=== PATIENT | male | born 1950 | race Caucasian/White ===

== ENCOUNTER 2024-08-22 15:26 | Inpatient (IN) | payer OTHER, SELFPAY ==
[2024-08-22 11:43] VITALS: BP 190/92
[2024-08-22 11:46] VITALS: BP 190/92
--- NOTE | 2024-08-22 12:03 | ED.MUSCINJ ---
HPI-Injury
General
Chief Complaint: Fall
Source: patient
Exam Limitations: none
Time Seen by Provider: 08/22/24 11:53
History of Present Illness-Injury
Initial Injury comments:
74-year-old male insulin-dependent type 2 diabetic presents after a trip and fall in his yard today. He complains of right hip pain. His right leg is externally rotated. He did not hit his head. He notes an abrasion to the right elbow. He is
not anticoagulated. No other complaints at this time
Past History
Past History
ED Past Medical History: HTN, Hypercholesterolemia and IDDM
ED Past Surgical History: None and Orthopedic
Social History
Tobacco: Smoker
Alcohol: Occasional
Personal:
Living: with family
Phy Exam
Physical Exam
Physical Exam:
General: Well appearing male NAD
HEENT: NC/AT
Heart: RRR, no murmurs
Lungs; CTA
ABd: soft, nontender
Ext: no cyanosis or edma
MSK: Right leg externally rotated with increased pain with internal rotation. The pain is at his hip. He is tender anteriorly about the right hip.
Vascular: 2+ dorsalis pedis pulse bilateral
Injury Course
Orders/Labs/Results
Orders:
Orders
08/22/24 11:53
Hip, Right 2-3 Views [CR Hip - RT w/wo Pel 2-3 Vw*] Urgent
Comment:
Reason For Exam: fall
Include a pelvis x-ray?: Yes
08/22/24 12:02
Acetaminophen [Tylenol] 1,000 mg PO NOW STA
08/22/24 12:48
Complete Blood Count/With Diff Urgent
Comprehensive Metabolic Panel Urgent
MDM/Problems Addressed
Differential Diagnosis Includes:
Fall with right hip pain. Fall was mechanical in nature. Clinical concern for possible fracture but will get x-rays to evaluate location or rule out fracture otherwise. No indication of imaging of his head and there is no signs of trauma he did
not hit his head.
*Critical Care Note
Total Time (30-74mins, 75-104mins- exclusive of procedures): Not Applicable
Update Note
Update Note:
Personally visualized x-rays of the right hip and pelvis which demonstrate an acute basicervical/intertrochanteric fracture of the right femur. Notified hospitalist as well as orthopedics. Will admit to hospital
ED Attending Note
-
Portions of this chart may have been created with voice recognition software.� Occasional wrong word or��sound alike� substitutions may have occurred due to the inherent limitations of voice recognition software.
Discharge Plan
Departure
Patient Disposition: Admit
Date of Disposition: 08/22/24
Time of Disposition: 12:54
Presentation/result/management discussed w/ accepting MD/DO: Hospitalist
Discharge Problem:
Closed right hip fracture
Prescriptions:
No Action
rosuvastatin [Crestor] 10 MG tablet
10 mg PO DAILY
metformin 500 mg Tablet
500 mg PO BID
insulin glargine [Lantus Solostar U-100 Insulin] 100 unit/mL (3 mL) Insulin Pen
34 unit SC HS
carvedilol 12.5 mg tablet
12.5 mg PO BID
aspirin 81 mg Tablet,Delayed Release (Dr/Ec)
81 mg PO DAILY
Ozempic 2 mg/dose (8 mg/3 mL) pen injector
2 mg SC RHODES
ondansetron 4 mg tablet,disintegrating
4 mg PO TID PRN (Reason: nausea/vomiting)
losartan 100 mg Tablet
100 mg PO DAILY Qty: 30 0RF
amlodipine 5 mg Tablet
5 mg PO DAILY Qty: 30 0RF
methimazole 5 mg Tablet
5 mg PO DAILY Qty: 30 0RF
Referrals:
Rosalva Coronado PA-C [Family Provider] -
Interventions
Interventions:
*Risk Screen - Suicide Last Done: 08/22/24 11:43
*General Assessment Last Done: 08/22/24 11:43
*Neglect/Abuse Screening Last Done: 08/22/24 11:43
ED- Fall Risk Assessment Last Done: 08/22/24 11:51
*ED COVID-19 Vaccine History Last Done: 08/22/24 11:43
ED-Musculoskeletal Assessment Last Done: 08/22/24 11:51
ED- Neurological Assessment Last Done: 08/22/24 11:51
Discharge Date and Time
Print Language: SAMMARINESE
[2024-08-22] MEDS: TYLENOL 1000 MG PO (12:13)
[2024-08-22 12:20] VITALS: BMI 35.9
[2024-08-22 13:02] LABS: % Basophils 0.6 % (0-2); % Eosinophils 1.3 % (0-6); % Immature Granulocytes 0.7 % (0-0.5); % Lymphocytes 13.8 % (20.5-51.1); % Monocytes 6.3 % (1.7-9.3); % Neutrophils 77.3 % (42.2-75.2); Absolute Basophils 0.1 10^3/uL (0-0.2); Absolute Eosinophils 0.2 10^3/uL (0-0.7); Absolute Immature Granulocytes 0.1 10^3/uL (0-0.05); Absolute Lymphocytes 1.6 10^3/uL (1.2-3.4); Absolute Monocytes 0.7 10^3/uL (0.1-0.6); Absolute Neutrophils 8.7 10^3/uL (1.4-6.5); Hematocrit 41.2 % (39.0-52.0); Hemoglobin 13.3 g/dL (13.0-18.0); Mean Corp Hgb Conc. 32.3 g/dL (33.0-37.0); Mean Corpuscular Hgb 30.1 pg (27.0-31.0); Mean Corpuscular Volume 93.2 fL (80.0-94.0); Mean Platelet Volume 10.9 fL (7.4-10.4); Nucleated Red Blood Cells % 0 % (-); Platelet Count 196 10^3/uL (130-400); Red Blood Cell Count 4.42 10^6/uL (4.70-6.10); Red Cell Dist. Width 12.8 % (11.5-14.5); White Blood Cell Count 11.2 10^3/uL (4.8-10.8)
[2024-08-22] MEDS: DILAUDID 0.5 MG IV ×3 (13:10→23:12)
[2024-08-22 13:21] LABS: ALT (SGPT) 25 U/L (0-50); AST (SGOT) 26 U/L (17-59); Albumin 4.9 g/dl (3.5-5.0); Alkaline Phosphatase 61 U/L (38-126); Blood Urea Nitrogen 33 mg/dl (9-20); Carbon Dioxide 25 mmol/L (22-30); Chloride 104 mmol/L (98-107); Estimated Creatinine Clearance 44 ml/min; Glucose 151 mg/dl (70-99); Sodium 140 mmol/L (135-145); Total Bilirubin 0.6 mg/dl (0.2-1.3); Total Protein 7.8 g/dl (6.3-8.2); eGFR 42.04
--- NOTE | 2024-08-22 14:06 | HPS.HSE ---
Addendum entered and electronically signed by Keshai Gomez DO 08/22/24 15:35:
The patient is seen and examined. I have reviewed the patient with DOUGHNUT ICER, Hannah, and I agree with her history and physical, assessment and plan of care as per below. The patient has right hip pain, that is greatly improved following IV Dilaudid in
the ED.
Vitals reviewed as per below
PE:
NAD
CV: RRR, no m/r/g
Lungs: CTA b/l no w/r/r
Abd: Soft, nt/nd, normal bs
neurovascular-intact distal pulses, no focal neurologic deficits
Right intertrochanteric fracture-I agree with assessment and plan of care as per below, with following additions to order:
#Intertrochanteric fx following mechanical fall
-add neurovascular checks
-continue pain meds prn
-PCDs
-hold aspirin for now
#Acute renal failure on chronic kidney disease, likely partly pre-renal
-will give IVF and repeat BMP in am, baseline creatinine likely 1.3
-hold metformin
-hold losartan for now
Original Note:
Family Physician
-
Family Physician: Rosalva Coronado PA-C
Chief Complaint
-
fall
History of Present Illness
Patient is a 74-year-old male with past medical history significant for hypertension, DM II, hypercholesterolemia, CKD stage III, and hyperthyroidism who presented to [facility] for evaluation right hip pain s/p fall. Patient reports that he
tripped over [employer] [address] to [facility]. He currently reports no pain after medication in ED. He denies hitting his head and any LOC. He denies any recent sick contact, fevers, chills, cough, shortness of breath, chest pain, nausea, vomiting,
constipation, diarrhea or urinary symptoms.
Medical History
Past Medical History
Past Medical History: Reports Other
Additional Past Medical History:
benign hypertension
DM II
hypercholesterolemia
CKD stage III
hyperthyroidism
Past Surgical History: Reports Other
Additional Past Surgical History:
back surgery
bladder surgery to remove mass
Left ankle repair
Social History
Tobacco: Former Smoker (quit 2-3 years ago, 30-40 pack year history )
Alcohol: Occasional (couple beers a couple times a week)
Drug: None
Personal:
Living: With Family
Employment: Retired
Family History
Family History: Not pertinent
Allergies / Home Medications
Allergies reflects when Allergies were last updated in [facility].
Home Medications with original date entered in [facility]
Allergy/Medication List:
Allergies
Allergy/AdvReac Type Severity Reaction Status Date / Time
atorvastatin Allergy Unknown Verified 06/03/22 15:52
Home Medications
rosuvastatin 10 mg tablet (Crestor) 10 mg PO DAILY 09/08/13
insulin glargine 100 unit/mL (3 mL) subcutaneous pen (Lantus Solostar U-100 Insulin) 25 unit SC HS 05/31/22
metformin 500 mg tablet 500 mg PO BIDWMEAL 05/31/22
aspirin 81 mg tablet,delayed release 81 mg PO DAILY 06/03/22
carvedilol 12.5 mg tablet 12.5 mg PO BID 06/03/22
amlodipine 5 mg tablet 5 mg PO DAILY #30 tabs 06/06/22
methimazole 5 mg tablet 5 mg PO DAILY #30 tabs 06/06/22
empagliflozin 10 mg tablet (Jardiance) 10 mg PO DAILY 08/22/24
losartan 50 mg tablet 50 mg PO DAILY 08/22/24
repaglinide 1 mg tablet 1 mg PO AC 08/22/24
Review of Systems
-
History Source: Patient
Constitutional: Reports No Symptoms
EENT: Reports No Symptoms
Respiratory: Reports No Symptoms
Cardiac: Reports No Symptoms
Abdomen/GI: Reports No Symptoms
: Reports No Symptoms
Musculoskeletal: Reports Joint Pain (right hip)
Skin: Reports No Symptoms
Neurological: Reports No Symptoms
Endocrine: Reports No Symptoms
Hematologic/Lymphatic: Reports No Symptoms
Psych: Reports No Symptoms
Physical Exam
Vital Signs
Vital Signs
Temp Pulse Resp BP Pulse Ox
98.0 F 56 12 190/92 98
08/22/24 11:43 08/22/24 12:15 08/22/24 12:15 08/22/24 11:46 08/22/24 12:15
Physical Exam
General: Well Developed, Well Nourished, No Apparent Distress, Comfortable, Conversant and Obese
HEENT: NormoCephalic, Moist mucous membranes, Atraumatic, PERRLA, [place] Conjunctivae, Nose Appears Normal and Ears Appear Normal
Respiratory: Clear and Non Labored Respirations
Cardiac: S1/S2 and Regular Rhythm; No Murmur, Rub or Gallop
Breast: Deferred by me
GI: Soft, Non Tender, Non Distended and Normal Bowel Sounds; No Organomegaly
Rectal: Deferred by Provider
Genito-urinary: Deferred by me
Musculoskeletal: No Clubbing, No Cyanosis, No Edema and Other (limited ROM to right hip, externally rotated )
Skin: IV/Catheter Site; No Rash
Neuro: Awake, Alert, AO x 3 and Nonfocal/grossly intact
Psych: Calm and Intact Judgment/Insight
Laboratory Results
-
08/22/24 12:53
08/22/24 12:53
Laboratory Results
Total Bilirubin 0.6 mg/dl (0.2-1.3) 08/22/24 12:53
AST 26 U/L (17-59) 08/22/24 12:53
ALT 25 U/L (0-50) 08/22/24 12:53
Alkaline Phosphatase 61 U/L (38-126) 08/22/24 12:53
Data Reviewed
-
Diagnostic Radiology: Report Reviewed by me (Right Hip: Comminuted intertrochanteric fracture, proximal right femur.; Right femur: Intertrochanteric fracture, proximal right femur.)
Lab Data: Labs Reviewed by me (BUN 33, Creat 1.7)
Impression/Plan
-
IMPRESSION/PLAN:
#mechanical fall
Rt Hip x-ray: Comminuted intertrochanteric fracture, proximal right femur.
Rt Femur x-ray: Intertrochanteric fracture, proximal right femur.
- Admit to med/surg
- consult ortho
- NPO after midnight
- PT/OT
#benign hypertension
- continue amlodipine, carvedilol, and losartan
#DM II
- AccuCheck AC & HS
- SSI
- continue empagliflozin, Lantus and repaglinide
- hold metformin
#hypercholesterolemia
- continue rosuvastatin
#CKD stage III
BUN 33, Creat 1.7
- monitor BMP
#hyperthyroidism
- continue methimazole
Code status: Full Code
DVT prophylaxis: DVT Prophylaxis
[2024-08-22 16:50] VITALS: BP 133/72
--- NOTE | 2024-08-22 16:50 | PTCARENOTE ---
At 16:50 patient arrived from ED on stretcher, pulled onto bed with assist x3, static air overlay in place, VSS, admission history obtained at bedside.
[2024-08-22 18:34] LABS: Glucose - Point of Care 120 mg/dl (70-99)
[2024-08-22] MEDS: NOVOLOG FLEXPEN-LOW RESISTANCE SC (18:35)
[2024-08-22] MEDS: PRANDIN 1 MG PO (18:35)
[2024-08-22] MEDS: COREG 12.5 MG PO (19:51)
[2024-08-22] MEDS: NSS 1000 IV (19:51)
--- NOTE | 2024-08-22 20:08 | CON.ORTHO ---
Consultation - Orthopedics
History
HPI: 74-year-old community ambulator presented to emergency department status post mechanical slip and fall complaints of right hip pain and inability to bear weight. He was subsequently diagnosed with a right intertrochanteric femur fracture. He
was admitted to the hospitalist service. Orthopedics is consulted for further evaluation and treatment. This evening patient's accompanied by his at bedside. He reports that he was working in the yard when he slipped and fell and heard a
crack in his right hip. He localizes pain to the right hip and groin region. Pain is made worse with direct palpation affected area with attempted ambulation. Reports that he is quite active works out regularly. Reports that he does take baby
aspirin but no other anticoagulants. Does note history of type 2 diabetes.
Allergies / Home Medications
Past medical history: Hypertension, type 2 diabetes, hypercholesterolemia, chronic kidney disease
Past surgical history: Back surgery, bladder surgery, left ankle surgery
Family history: Not pertinent
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
Allergy/AdvReac Type Severity Reaction Status Date / Time
atorvastatin Allergy Unknown Verified 06/03/22 15:52
�Medication �Instructions �Recorded
rosuvastatin 10 mg tablet (Crestor) 10 mg PO DAILY 09/08/13
insulin glargine 100 unit/mL (3 25 unit SC HS 05/31/22
mL) subcutaneous pen (Lantus
Solostar U-100 Insulin)
metformin 500 mg tablet 500 mg PO BIDWMEAL 05/31/22
aspirin 81 mg tablet,delayed 81 mg PO DAILY 06/03/22
release
carvedilol 12.5 mg tablet 12.5 mg PO BID 06/03/22
amlodipine 5 mg tablet 5 mg PO DAILY #30 tabs 06/06/22
methimazole 5 mg tablet 5 mg PO DAILY #30 tabs 06/06/22
empagliflozin 10 mg tablet 10 mg PO DAILY 08/22/24
(Jardiance)
losartan 50 mg tablet 50 mg PO DAILY 08/22/24
repaglinide 1 mg tablet 1 mg PO AC 08/22/24
Vital Signs / Lab Results
Temp Pulse Resp BP Pulse Ox
97.9 F 68 20 131/79 98
08/22/24 16:50 08/22/24 19:51 08/22/24 16:50 08/22/24 19:51 08/22/24 16:50
08/22/24 12:53
08/22/24 12:53
10 point review systems reviewed and negative unless otherwise stated
General: Pleasant, no acute distress at rest in bed
Musculoskeletal right lower extremity
Skin intact, no erythema
Tenderness palpation of the groin and lateral trochanteric flare
Painful logroll
No tenderness palpation about knee, no palpable ipsilateral knee effusion
Positive EHL, FHL, ankle dorsiflexion, plantarflexion
Right lower extremity shortened externally rotated
No other areas of bony tenderness to palpation or crepitus of long bones or joints on tertiary exam
Diagnostic studies
X-rays right hip independently by myself and radiology report reviewed. Evidence of right intertrochanteric femur fracture.
Assessment / Plan
74-year-old community ambulator status post fall with right intertrochanteric femur fracture. I had a long detailed discussion with the patient and his regarding diagnosis and treatment options. Discussed postsurgical nonsurgical options.
After discussion we mutually elected proceed with operative intervention in the form of insertion right cephalomedullary nail for intertrochanteric femur fracture. We discussed risks benefits and alternatives to surgery. We discussed the usual
expected perioperative postoperative course. After discussion verbal consent was obtained. Will plan obtain written informed consent prior to surgery.
Nonweightbearing right lower extremity
N.p.o. at midnight
Please hold anticoagulation in preparation for OR tomorrow
Medical management per primary team
Pain control
Plan: 2 OR tomorrow for insertion right cephalomedullary nail right intertrochanteric femur fracture pending OR availability and medical clearance
[2024-08-22] MEDS: ANCEF 10 IV (21:32)
[2024-08-22] MEDS: LANTUS 0.12 UNITS SC (21:32)
[2024-08-22 21:40] LABS: Glucose - Point of Care 282 mg/dl (70-99)
[2024-08-22 22:32] VITALS: BP 169/87
[2024-08-23] VITALS (9 sets, daily range): BP systolic 114–167; BP diastolic 73–99
[2024-08-23] MEDS: DILAUDID 0.5 MG IV ×5 (04:03→20:28)
[2024-08-23 06:47] LABS: Hematocrit 37.5 % (39.0-52.0); Hemoglobin 12.3 g/dL (13.0-18.0); Mean Corp Hgb Conc. 32.8 g/dL (33.0-37.0); Mean Corpuscular Hgb 30.4 pg (27.0-31.0); Mean Corpuscular Volume 92.6 fL (80.0-94.0); Mean Platelet Volume 10.9 fL (7.4-10.4); Platelet Count 189 10^3/uL (130-400); Red Blood Cell Count 4.05 10^6/uL (4.70-6.10); White Blood Cell Count 11.2 10^3/uL (4.8-10.8)
[2024-08-23 07:07] LABS: Blood Urea Nitrogen 33 mg/dl (9-20); Calcium 8.6 mg/dl (8.4-10.2); Carbon Dioxide 23 mmol/L (22-30); Chloride 105 mmol/L (98-107); Estimated Creatinine Clearance 44 ml/min; Glucose 228 mg/dl (70-99); Potassium 4.4 mmol/L (3.5-5.1); Sodium 139 mmol/L (135-145); eGFR 42.04
[2024-08-23] MEDS: NSS 1000 IV ×2 (07:27→21:30)
--- NOTE | 2024-08-23 08:23 | W.PN.UPDATE ---
Update Note
Progress Note Update
I saw and evaluated the patient. I reviewed the resident�s note and agree with findings and plan as documented in the resident�s note.
Gen: NAD, AAOx3.
Eyes: EOMI, PERRLA, no scleral icterus.
Neck: supple.
CV: RRR, +S1/S2, no m/r/g.
Resp: CTAB, no rales, wheezes, or rhonchi.
Abd: +BS, soft, NT, ND
Skin: No rashes.
Neuro: CN 2-12 intact, non-focal.
Psych: Normal mood and affect.
R femur Xray: Intertrochanteric fracture, proximal right femur.
Right intertrochanteric fracture:
-due to mechanical fall
-OR today for insertion right cephalomedullary nail right intertrochanteric femur fracture
-low-mod risk for surgery. I recommend proceeding with planned surgical procedure as the benefit greatly outweighs the risk.
Other problems:
Essential hypertension:
DM2:
HLD:
Hyperthyroidism:
CKD3b: Cr currently acceptable for surgery. Prior Cr of 1.3 noted but this was in May 2022.
Obesity due to excess calories
FULL/SCDs
--- NOTE | 2024-08-23 08:40 | W.PN.HOSP.TC ---
Today's Communication/Plan
-
.
Assessment / Plan
Assessment / Plan
1. Right Femur Intertrochanteric Fracture s/p Mechanical Fall
- R Hip XR: Comminuted intertrochanteric fracture, proximal right femur
- R Femur XR: Intertrochanteric fracture, proximal right femur
- Seen by ortho, plan for OR today for R cephalomedullary nail
- NPO until after procedure
- PT/OT after procedure
2. Essential HTN
- Continue amlodipine, carvedilol
- Losartan held pre-procedurally
3. NIDDM
- AccuCheck AC & HS
- Sliding Scale Insulin
- continue empagliflozin, Lantus and repaglinide
- hold metformin
4. hypercholesterolemia
- continue rosuvastatin
5. CKD stage III
- Creatinine 1.7 on admission, repeat this AM 1.7 despite IV fluids
- [employer], has had 2 outpatient CMPs in the past year with Cr 1.7 (this is likely his new baseline)
- Patient has spoken with PCP regarding need to follow up with patient scheduler for worsening kidney function
6. Hyperthyroidism
- Continue methimazole
Anticipated Discharge: 24 - 48 hours
Subjective/Interval History
-
Date of Service: August 23, 2024
Patient seen and examined while resting in bed, awaiting orthopedic surgery. Patient has no other acute complaints this AM. Went over history of the injury, briefly, states that he tripped over his own feet, fell, and knew immediately that he has
fractured something. Patient denies any chest pain, palpitations, shortness of breath or dizziness prior to the event, or loss of consciousness before or after the event.
Patient notes that he has been seen by primary care physician over the past year, and that they have discussed worsening kidney function, as well as the need to visit a patient scheduler.
Objective Data
-
Labs:
Laboratory Results
08/23/24
05:05
WBC 11.2 H
Hgb 12.3 L
Hct 37.5 L
Plt Count 189
Sodium 139
Potassium 4.4
Chloride 105
Carbon Dioxide 23
BUN 33 H
Creatinine 1.7 H
Glucose 228 H
Calcium 8.6
Vital Signs:
Vital Signs
Temp Pulse Resp BP Pulse Ox
98.7 F 63 20 167/83 97
08/23/24 07:49 08/23/24 07:49 08/23/24 07:49 08/23/24 07:49 08/23/24 07:49
I&O
08/22/24 08/23/24 08/24/24
06:59 06:59 06:59
Intake Total 960 / 960
Output Total 600 / 600
Balance 360 / 360
Review of Systems
-
History Source: Patient
Constitutional: Reports No Symptoms
Respiratory: Reports No Symptoms
Cardiac: Reports No Symptoms
Abdomen/GI: Reports No Symptoms
Musculoskeletal: Reports Joint Pain (right hip)
Neuro: Reports No Symptoms
Physical Exam
-
General: No Apparent Distress, Conversant and Morbidly Obese
HEENT: Normocephalic, Atraumatic and Moist Mucous Membranes
Respiratory: Clear to Auscultation and Non Labored Respirations; Negative Wheezes, Rales or Rhonchi
Cardiac: Regular Rhythm and S1/S2
GI: Soft and Nontender
Musculoskeletal: No Clubbing, No Cyanosis, No Edema and Other (right hip, externally rotated)
Skin: Warm and Dry
Neuro: Awake and Alert
Psych: Calm
Data Reviewed
-
Diagnostic Radiology: Report Reviewed by me
Labs: Labs Reviewed by me and Discussed with Patient
[2024-08-23] MEDS: NORVASC 5 MG PO (08:51)
[2024-08-23] MEDS: TAPAZOLE 5 MG PO (08:51)
[2024-08-23] MEDS: PRANDIN PO ×3 (08:52→15:39)
[2024-08-23] MEDS: CRESTOR 10 MG PO (08:52)
[2024-08-23] MEDS: COREG 12.5 MG PO ×2 (08:52→21:31)
[2024-08-23] MEDS: FARXIGA 10 MG PO (08:52)
[2024-08-23 09:03] LABS: Glucose - Point of Care 195 mg/dl (70-99)
[2024-08-23 09:27] LABS: Glycohemoglobin (HgbA1c) 8.2 % (4.0-5.6)
[2024-08-23] MEDS: NOVOLOG FLEXPEN-LOW RESISTANCE 1 UNITS SC (09:51)
[2024-08-23 11:38] LABS: Glucose - Point of Care 141 mg/dl (70-99)
[2024-08-23] MEDS: NOVOLOG FLEXPEN-LOW RESISTANCE SC ×2 (11:45→17:48)
[2024-08-23] MEDS: DESENEX/MITRAZOL/ZEASORB 1 APPLIC TOPICAL ×2 (12:55→21:31)
--- NOTE | 2024-08-23 15:54 | CM ---
train operations manager reviewed patient's chart and patient lives with his spouse in a bilevel home with 6 steps up to kitchen and 6 steps to bedroom, patient was independent with adl's and ambulation, no dme, plan now is for skilled placement and options
reviewed with patient and spouse and they have selected [facility], referral sent to admissions at [facility].
PCP; Rosalva Coronado
Pharmacy; [facility] in [place].
[2024-08-23 16:14] LABS: Glucose - Point of Care 121 mg/dl (70-99)
--- NOTE | 2024-08-23 17:58 | OR.RPT ---
Operative Report
Operative Report
Anesthesia Type:
General
Operative Indications:
Right
Intertrochanteric femur fracture
Operative Findings :
Predominantly right basicervical femoral fracture pattern with some comminution medial calcar
Complications:
None
Implants:
11 mm x 125 degree short gamma nail, [place], 110 mm cephalomedullary screw, 35 mm x 5 mm distal interlocking screw
Procedure and Technique:
Insertion right short cephalomedullary nail
INDICATIONS FOR PROCEDURE:
74-year-old patient presented status post mechanical fall. They were subsequently diagnosed with a peritrochanteric femur fracture. Orthopedics was consulted for further evaluation and treatment. After discussion with the patient and family,
the decision was made to proceed with operative intervention in the form of short cephalomedullary nail. A long discussion was had regarding risks and benefits of procedure. Risks include but are not limited to infection, blood loss, damage to
surrounding structures, persistent pain, loss of function, need for repeat surgery, implant cut out, periprosthetic fracture, DVT/PE and adverse risks of anesthesia. Benefits include early mobilization and fracture stabilization. After discussion
written informed consent was obtained.
OPERATIVE PROCEDURE:
The patient was seen and identified in the preoperative holding area. The operative extremity was marked and all questions were addressed with the patient. Patient was taken to the operating room and provided anesthesia by the anesthesia team.
They were placed supine on a radiolucent fracture table. The nonoperative extremity was placed in a scissored position and well padded to the contralalteral post of the fracture table. Operative extremity was placed in a well-padded fracture boot.
Biplanar fluoroscopy confirmed appropriate reduction after axial traction, adduction and slight internal rotation of the operative extremity. Operative extremity was then prepped and draped in normal sterile fashion. Timeout was performed again
identifying the operative extremity correctly. Preoperative antibiotics were addressed.
A small incision was made several fingerbreadths proximal to the greater trochanter. Sharp dissection was carried through skin and subcutaneous tissues and deep fascial layers. Guidepin was then inserted under biplanar fluoroscopic guidance
through the tip of the greater trochanter in accordance with the implant's operative technique. This was inserted to a depth just distal to the lesser trochanter. Proximal opening reamer was then utilized. A short cephalomedullary nail was then
inserted to the appropriate depth. Trocar was then inserted through the aiming arm. Sharp dissection was then carried through skin and subcutaneous tissues as well as deep fascial layers for an additional stab incision for the cephalomedullary
screw. Guidewire was inserted through the trocar into the femoral neck and head. Appropriate position was confirmed under biplanar fluoroscopy. Attention was made to minimize the tip apex distance. Measurements were obtained for the
cephalomedullary screw. Cannulated drill was then utilized to the appropriate depth followed by the insertion of cannulated cephalomedullary screw. Appropriate final position of the screw within the confines of the femoral neck and head was
confirmed again on biplanar fluoroscopy. There was noted to be some comminution medial calcar/femoral neck junction inferiorly. additional trocar was then inserted through the aiming arm for the distal interlocking screw. Sharp dissection was
carried through skin, subcutaneous tissues and deep fascial layers. Appropriate length interlocking screw was then drilled and inserted. Final appropriate positioning was confirmed again on biplanar fluoroscopy. Satisfied with the extent of
surgery, wounds were copiously irrigated with normal saline solution and closed in a layered fashion utilizing 0 Vicryl for deep fascial layer, 2-0 Vicryl for subcu cutaneous layer and stacey for skin. Sterile dressings were applied. Anesthesia
was reversed and patient was taken to the operating room in a stable condition.
Disposition:
PACU stable condition
[2024-08-23 19:59] LABS: Glucose - Point of Care 105 mg/dl (70-99)
[2024-08-23] MEDS: DILAUDID 0.25 MG IV (20:06)
[2024-08-23] MEDS: COLACE 100 MG PO (21:31)
[2024-08-23 21:41] LABS: Glucose - Point of Care 134 mg/dl (70-99)
--- NOTE | 2024-08-23 21:46 | PTCARENOTE ---
Pt arrive to [facility] at 2110 from the PACU in a bed. Pt arrive with 2 Aquacells on Right hip; both C/D/I. Pt on 2L of o2. Full head to toe assessed. Pt oriented to room and call hansen. Care ongoing.
[2024-08-23] MEDS: LANTUS 0.12 UNITS SC (21:54)
[2024-08-24] VITALS (7 sets, daily range): BP systolic 144–191; BP diastolic 75–87; PULSE 89; O2SAT 96
[2024-08-24] MEDS: ANCEF 5 IV ×2 (00:32→08:29)
--- NOTE | 2024-08-24 01:29 | W.PN.UPDATE ---
Update Note
Progress Note Update
RN notified SEWING MACHINE ADJUSTER, patient with urge to void, unable to void more than 50cc post surgery. PVR 1400, will order to straight cath per protocol, Collect UA. Afebrile. Stable VS.
[2024-08-24] MEDS: ROXICODONE 10 MG PO ×3 (02:03→12:34)
[2024-08-24 03:43] LABS: Urine Albumin 3+ (Neg - Trace); Urine Bilirubin Negative (Negative); Urine Character Clear (Clear); Urine Color Yellow; Urine Glucose 4+ (Negative); Urine Ketone 1+ (Negative); Urine Leukocyte Negative (Negative); Urine Nitrite Negative (Negative); Urine Occult Blood 1+ (Negative); Urine Urobilinogen Negative (Neg - 1+)
[2024-08-24 05:49] LABS: Hematocrit 36.3 % (39.0-52.0); Hemoglobin 11.7 g/dL (13.0-18.0); Mean Corp Hgb Conc. 32.2 g/dL (33.0-37.0); Mean Corpuscular Hgb 30.3 pg (27.0-31.0); Mean Platelet Volume 10.7 fL (7.4-10.4); Platelet Count 181 10^3/uL (130-400); Red Blood Cell Count 3.86 10^6/uL (4.70-6.10); Red Cell Dist. Width 13.1 % (11.5-14.5); White Blood Cell Count 14.6 10^3/uL (4.8-10.8)
[2024-08-24 06:15] LABS: Blood Urea Nitrogen 30 mg/dl (9-20); Calcium 8.3 mg/dl (8.4-10.2); Carbon Dioxide 19 mmol/L (22-30); Chloride 106 mmol/L (98-107); Estimated Creatinine Clearance 47 ml/min; Glucose 133 mg/dl (70-99); Potassium 4.9 mmol/L (3.5-5.1); Sodium 139 mmol/L (135-145); eGFR 45.21
[2024-08-24 06:29] LABS: Urine Bacteria Few (Negative); Urine Red Blood Cell 0-2 /HPF (0-2); Urine White Cell 0-2 /HPF (0-5)
[2024-08-24 07:26] LABS: Glucose - Point of Care 158 mg/dl (70-99)
[2024-08-24] MEDS: NSS 1000 IV ×2 (08:27→18:24)
[2024-08-24] MEDS: CRESTOR 10 MG PO (08:28)
[2024-08-24] MEDS: COLACE 100 MG PO ×2 (08:28→21:00)
[2024-08-24] MEDS: TAPAZOLE 5 MG PO (08:28)
[2024-08-24] MEDS: FARXIGA 10 MG PO (08:28)
[2024-08-24] MEDS: NORVASC 5 MG PO (08:28)
[2024-08-24] MEDS: COREG 12.5 MG PO ×2 (08:29→21:00)
[2024-08-24] MEDS: LOVENOX 40 MG SC (08:29)
[2024-08-24] MEDS: PRANDIN 1 MG PO ×3 (08:31→17:35)
[2024-08-24] MEDS: NOVOLOG FLEXPEN-LOW RESISTANCE 1 UNITS SC ×2 (08:32→12:35)
[2024-08-24] MEDS: DESENEX/MITRAZOL/ZEASORB 1 APPLIC TOPICAL ×2 (08:32→21:00)
--- NOTE | 2024-08-24 09:10 | W.PN.UPDATE ---
Update Note
Progress Note Update
I saw and evaluated the patient. I reviewed the resident�s note and agree with findings and plan as documented in the resident�s note.
Gen: NAD, AAOx3.
Eyes: EOMI, PERRLA, no scleral icterus.
Neck: supple.
CV: remains RRR, +S1/S2, no m/r/g.
Resp: remains CTAB, no rales, wheezes, or rhonchi.
Abd: remains +BS, soft, NT, ND
Skin: No rashes.
Neuro: CN 2-12 intact, non-focal.
Psych: Normal mood and affect.
R femur Xray: Intertrochanteric fracture, proximal right femur.
Right intertrochanteric fracture:
-due to mechanical fall
-s/p Insertion right short cephalomedullary nail on 08/23/24
-PT/OT
Other problems:
Essential hypertension: cont Norvasc/BB
DM2: cont Lantus/SSI/accuchecks/Prandin/Farxiga
HLD: cont statin
Hyperthyroidism: cont Methimazole
CKD3b: Cr currently acceptable for surgery. Prior Cr of 1.3 noted but this was in May 2022. No HUYEN at this time.
Obesity due to excess calories
FULL/Lovenox
Medically cleared for d/c, case management aware.
--- NOTE | 2024-08-24 11:10 | CM ---
Addendum entered by Nata Lambert 08/24/24 16:58:
Spoke with Janis from [facility] - can accept tomorrow
Called to initiate auth
Spoke with [facility]
Clinicals to be faxed to [phone]
Plan - transfer to [facility] when auth obtained
R - [phone]
- [phone]
Original Note:
Met with pt and his at bedside
PT/OT evals pending
Referral sent to [facility] - per [facility] - reviewing - will need PT/OT evals - will update referral when evals completed
Family updated
Will need auth
Plan - awaiting review by [facility] regarding acceptance; will need auth once bed obtained
[2024-08-24 12:15] LABS: Glucose - Point of Care 197 mg/dl (70-99)
--- NOTE | 2024-08-24 12:19 | W.PN.HOSP.TC ---
Today's Communication/Plan
-
Disposition planning s/p PT/OT
Assessment / Plan
Assessment / Plan
1. Right Femur Intertrochanteric Fracture s/p Mechanical Fall
- R Hip XR: Comminuted intertrochanteric fracture, proximal right femur
- R Femur XR: Intertrochanteric fracture, proximal right femur
- POD# for cephalomedullary nail of the right hip/femur
- PT/OT for disposition planning, other varela medically stable for discharge.
2. Essential HTN
- Continue amlodipine, carvedilol, losartan
3. NIDDM
- AccuCheck AC & HS
- Sliding Scale Insulin
- continue empagliflozin, Lantus and repaglinide
- hold metformin
4. hypercholesterolemia
- continue rosuvastatin
5. CKD stage III
- Creatinine 1.7 on admission, repeat this AM 1.7 despite IV fluids
- Queried [employer], has had 2 outpatient CMPs in the past year with Cr 1.6 (this is likely his new baseline)
- Patient has spoken with PCP regarding need to follow up with ladder operator for worsening kidney function
6. Hyperthyroidism
- Continue methimazole
Anticipated Discharge: Today
Subjective/Interval History
-
Date of Service: August 24, 2024
Patient seen and examined while resting in bed, his is at bedside. Patient has no acute complaints, notes some residual pain of the RLE.
Objective Data
-
Labs:
Laboratory Results
08/24/24
05:08
WBC 14.6 H
Hgb 11.7 L
Hct 36.3 L
Plt Count 181
Sodium 139
Potassium 4.9
Chloride 106
Carbon Dioxide 19 L
BUN 30 H
Creatinine 1.6 H
Glucose 133 H
Calcium 8.3 L
Vital Signs:
Vital Signs
Temp Pulse Resp BP Pulse Ox
98.1 F 77 16 153/75 97
08/24/24 07:20 08/24/24 07:20 08/24/24 07:20 08/24/24 08:29 08/24/24 08:22
I&O
08/23/24 08/24/24 08/25/24
06:59 06:59 06:59
Intake Total 960 / 960 2380 / 2380
Output Total 600 / 600 2070 / 2070 750 / 750
Balance 360 / 360 310 / 310 -750 / -750
Review of Systems
-
Constitutional: Reports No Symptoms
Respiratory: Reports No Symptoms
Cardiac: Reports No Symptoms
Musculoskeletal: Reports Other (lower extremity pain, RLE)
Neuro: Reports No Symptoms
Physical Exam
-
General: Well Developed, Well Nourished, No Apparent Distress and Comfortable
HEENT: Normocephalic and Atraumatic
Respiratory: Clear to Auscultation; Negative Wheezes, Rales or Rhonchi
Cardiac: Regular Rhythm and S1/S2
GI: Soft and Nontender
Musculoskeletal: No Clubbing, No Cyanosis and No Edema
Skin: Warm and Dry
Neuro: Awake, Alert and Oriented
Psych: Calm
Data Reviewed
-
Labs: Labs Reviewed by me
[2024-08-24 17:04] LABS: Glucose - Point of Care 244 mg/dl (70-99)
[2024-08-24] MEDS: NOVOLOG FLEXPEN-LOW RESISTANCE 2 UNITS SC (17:33)
--- NOTE | 2024-08-24 17:50 | W.PN.ORTHO ---
Today's Communication / Plan
-
74-year-old male postop day 1 status post right short cephalomedullary nail for basicervical femoral neck fracture doing well
Weightbearing as tolerated right lower extremity
PT OT
Pain control
DVT prophylaxis: Recommend Lovenox renally dosed x 28 days daily
Medical management per primary team
Plan to follow-up with myself in outpatient basis in 2 to 3 weeks for repeat evaluation plan removal of stacey
Subjective
.
.:
Patient comfortable in chair at bedside. Family with him at bedside.
Vital Signs and Labs
.
Vital Signs and Labs:
Lab Results
08/24/24 05:08
08/24/24 05:08
Temp Pulse Resp BP Pulse Ox
98.4 F 88 17 167/79 98
08/24/24 15:30 08/24/24 15:30 08/24/24 15:30 08/24/24 15:30 08/24/24 15:30
Physical Exam
-
Musculoskeletal right lower extremity
Minimal bloody drainage on dressing
Moderate swelling thigh
Positive EHL, FHL, ankle dorsiflexion, plantarflexion
[2024-08-24 19:09] LABS: Hepatitis C Antibody Negative (Negative)
[2024-08-24 21:20] LABS: Glucose - Point of Care 257 mg/dl (70-99)
[2024-08-24] MEDS: LANTUS 0.12 UNITS SC (21:21)
[2024-08-25] MEDS: NSS 1000 IV (04:43)
[2024-08-25] MEDS: ROXICODONE 10 MG PO (06:37)
[2024-08-25 07:23] LABS: Glucose - Point of Care 152 mg/dl (70-99)
[2024-08-25 07:27] VITALS: BP 145/73
--- NOTE | 2024-08-25 08:42 | W.PN.HOSP.TC ---
Today's Communication/Plan
-
.
Assessment / Plan
Assessment / Plan
1. Right Femur Intertrochanteric Fracture s/p Mechanical Fall
- R Hip XR: Comminuted intertrochanteric fracture, proximal right femur
- R Femur XR: Intertrochanteric fracture, proximal right femur
- POD# for cephalomedullary nail of the right hip/femur
- PT/OT for disposition planning, other varela medically stable for discharge.
- Medically stable for d/c since 08/24. Awaiting bed at [facility].
2. Essential HTN
- Continue amlodipine, carvedilol, losartan
3. NIDDM
- AccuCheck AC & HS
- Sliding Scale Insulin
- continue empagliflozin, Lantus and repaglinide
- hold metformin
4. hypercholesterolemia
- continue rosuvastatin
5. CKD stage III
- Creatinine 1.7 on admission, repeat this AM 1.7 despite IV fluids
- Queried [employer], has had 2 outpatient CMPs in the past year with Cr 1.6 (this is likely his new baseline)
- Patient has spoken with PCP regarding need to follow up with appeals officer for worsening kidney function
6. Hyperthyroidism
- Continue methimazole
Anticipated Discharge: Today
Subjective/Interval History
-
Date of Service: August 25, 2024
No acute complaints this AM, pain controlled.
Objective Data
-
Vital Signs:
Vital Signs
Temp Pulse Resp BP Pulse Ox
99.3 F 70 16 145/73 94
08/25/24 07:27 08/25/24 07:27 08/25/24 07:27 08/25/24 07:27 08/25/24 07:27
I&O
08/24/24 08/25/24 08/26/24
06:59 06:59 06:59
Intake Total 2380 / 2380 2880 / 2880
Output Total 2069 1450 / 1450
Balance 310 / 310 1430 / 1430
Review of Systems
-
History Source: Patient
Constitutional: Reports No Symptoms
Respiratory: Reports No Symptoms
Cardiac: Reports No Symptoms
Musculoskeletal: Reports No Symptoms (pain controlled)
Neuro: Reports No Symptoms
Physical Exam
-
General: Well Developed, Well Nourished, No Apparent Distress and Conversant
HEENT: Normocephalic and Atraumatic
Respiratory: Clear to Auscultation; Negative Wheezes, Rales or Rhonchi
Cardiac: Regular Rhythm and S1/S2
Musculoskeletal: No Clubbing, No Cyanosis and No Edema
Skin: Warm and Dry
Neuro: Awake and Alert
Psych: Calm
--- NOTE | 2024-08-25 09:21 | CM ---
Addendum entered by Nata Lambert 08/25/24 15:20:
Called to check on status of auth
Spoke with Christopher - Ref # [id number]
Auth # [id number] - remains pending
[facility] at [facility] updated
Addendum entered by Nata Lambert 08/25/24 13:34:
Called to check on status of auth
Spoke with Delmer
Auth remains pending
Re # - [id number]
Plan - transfer to [facility] when auth obtained
R - [phone]
- [phone]
Original Note:
Called - [phone] to check on status of auth
LM with call back number
Awaiting return call/fax
Plan - transfer to [facility] when auth obtained
R - [phone]
- [phone]
[2024-08-25] MEDS: NORVASC 5 MG PO (09:24)
[2024-08-25] MEDS: COLACE 100 MG PO ×2 (09:24→20:04)
[2024-08-25] MEDS: PRANDIN 1 MG PO ×3 (09:24→17:22)
[2024-08-25] MEDS: COREG 12.5 MG PO ×2 (09:24→20:05)
[2024-08-25] MEDS: CRESTOR 10 MG PO (09:25)
[2024-08-25] MEDS: LOVENOX 40 MG SC (09:25)
[2024-08-25] MEDS: TAPAZOLE 5 MG PO (09:25)
[2024-08-25] MEDS: FARXIGA 10 MG PO (09:25)
[2024-08-25] MEDS: NOVOLOG FLEXPEN-LOW RESISTANCE 1 UNITS SC (09:26)
--- NOTE | 2024-08-25 10:03 | W.PN.UPDATE ---
Update Note
Progress Note Update
I saw and evaluated the patient. I reviewed the resident�s note and agree with findings and plan as documented in the resident�s note.
Gen: NAD, AAOx3.
Eyes: EOMI, PERRLA, no scleral icterus.
Neck: supple.
CV: Continues to remain RRR, +S1/S2, no m/r/g.
Resp: Continues to room CTAB, no rales, wheezes, or rhonchi.
Abd: Continues to remain +BS, soft, NT, ND
Skin: No rashes.
Neuro: CN 2-12 intact, non-focal.
Psych: Normal mood and affect.
R femur Xray: Intertrochanteric fracture, proximal right femur.
Right intertrochanteric fracture:
-due to mechanical fall
-s/p Insertion right short cephalomedullary nail on 08/23/24
-PT/OT
-acute blood loss anemia due to surgery
Other problems:
Essential hypertension: cont Norvasc/BB
DM2: cont Lantus/SSI/accuchecks/Prandin/Farxiga
HLD: cont statin
Hyperthyroidism: cont Methimazole
CKD3b: Cr currently acceptable for surgery. Prior Cr of 1.3 noted but this was in May 2022. No HUYEN at this time.
Obesity due to excess calories
FULL/Lovenox
Remains medically cleared for d/c since 08/24/24AM, case management aware.
--- NOTE | 2024-08-25 12:14 | PTCARENOTE ---
Patient needed much encouragement to get OOB. Patient OOB to chair with max assist x1 and walker. Patient weak with very slow, small steps to chair. Patient dyspneic with activity, RA sat 96%. Patient placed on air cushion for comfort, ice to right
thigh, call hansen in reach. Spouse at bedside.
[2024-08-25 12:33] LABS: Glucose - Point of Care 233 mg/dl (70-99)
--- NOTE | 2024-08-25 12:50 | PTCARENOTE ---
Roxicodone 5mg given for right thigh discomfort. Patient states, 'It is not really pain, but more of a pressure.' Ice reapplied to right thigh. Spouse at bedside.
[2024-08-25] MEDS: NOVOLOG FLEXPEN-LOW RESISTANCE 2 UNITS SC (12:52)
[2024-08-25] MEDS: DESENEX/MITRAZOL/ZEASORB 1 APPLIC TOPICAL ×2 (12:53→20:04)
[2024-08-25] MEDS: ROXICODONE 5 MG PO (12:56)
[2024-08-25 15:10] VITALS: BP 124/63
[2024-08-25 16:03] VITALS: BP 140/70; PULSE 70; O2SAT 97
[2024-08-25 17:25] LABS: Glucose - Point of Care 278 mg/dl (70-99)
[2024-08-25] MEDS: NOVOLOG FLEXPEN-LOW RESISTANCE 3 UNITS SC (17:27)
[2024-08-25 21:14] LABS: Glucose - Point of Care 355 mg/dl (70-99)
[2024-08-25] MEDS: LANTUS 0.12 UNITS SC (21:55)
[2024-08-25 23:00] VITALS: BP 163/72
[2024-08-25] MEDS: SENOKOT-S 1 TABLET PO (23:56)
--- NOTE | 2024-08-26 07:39 | W.PN.UPDATE ---
Update Note
Progress Note Update
I saw and evaluated the patient. I reviewed the resident�s note and agree with findings and plan as documented in the resident�s note.
No new complaints.
Gen: NAD, AAOx3.
Eyes: EOMI, PERRLA, no scleral icterus.
Neck: supple.
CV: RRR, +S1/S2, no m/r/g.
Resp: CTAB, no rales, wheezes, or rhonchi.
Abd: +BS, soft, NT, ND
Skin: No rashes.
Neuro: CN 2-12 intact, non-focal.
Psych: Normal mood and affect.
R femur Xray: Intertrochanteric fracture, proximal right femur.
Right intertrochanteric fracture:
-due to mechanical fall
-s/p Insertion right short cephalomedullary nail on 08/23/24
-PT/OT
-acute blood loss anemia due to surgery
Other problems:
Essential hypertension: cont Norvasc/BB
DM2: cont Lantus/SSI/accuchecks/Prandin/Farxiga
HLD: cont statin
Hyperthyroidism: cont Methimazole
CKD3b: Cr currently acceptable for surgery. Prior Cr of 1.3 noted but this was in May 2022. No HUYEN at this time.
Obesity due to excess calories
FULL/Lovenox
Remains medically cleared for d/c since 08/24/24AM, case management aware.
[2024-08-26 07:40] VITALS: BP 169/75
[2024-08-26 07:40] LABS: Glucose - Point of Care 171 mg/dl (70-99)
--- NOTE | 2024-08-26 07:55 | W.PN.HOSP.TC ---
Today's Communication/Plan
-
Discharge to [place].
Assessment / Plan
Assessment / Plan
1. Right Femur Intertrochanteric Fracture s/p Mechanical Fall
- R Hip XR: Comminuted intertrochanteric fracture, proximal right femur
- R Femur XR: Intertrochanteric fracture, proximal right femur
- POD# for cephalomedullary nail of the right hip/femur
- PT/OT for disposition planning, other varela medically stable for discharge.
- Medically stable for d/c since 08/24. Awaiting bed at [facility].
2. Essential HTN
- Continue amlodipine, carvedilol, losartan
3. NIDDM
- AccuCheck AC & HS
- Sliding Scale Insulin
- continue empagliflozin, Lantus and repaglinide
- hold metformin
4. hypercholesterolemia
- continue rosuvastatin
5. CKD stage III
- Creatinine 1.7 on admission, repeat this AM 1.7 despite IV fluids
- [facility], has had 2 outpatient CMPs in the past year with Cr 1.6 (this is likely his new baseline)
- Patient has spoken with PCP regarding need to follow up with young adult librarian for worsening kidney function
6. Hyperthyroidism
- Continue methimazole
Anticipated Discharge: Today
Subjective/Interval History
-
Date of Service: August 26, 2024
Patient seen and examined while resting comfortably in bed, watching TV. Awaiting authorization for discharge to SNF. Patient has no acute complaints this AM. When discussing yesterday's PT, patient states he is still a little sore but subjectively
feels like he has better mobility than the day before.
Objective Data
-
Vital Signs:
Vital Signs
Temp Pulse Resp BP Pulse Ox
99.0 F 81 14 163/72 97
08/25/24 23:00 08/25/24 23:00 08/25/24 23:00 08/25/24 23:00 08/25/24 23:00
I&O
08/25/24 08/26/24 08/27/24
06:59 06:59 06:59
Intake Total 2880 / 2880 1380 / 1380
Output Total 1450 / 1450 2950 / 2950
Balance 1430 / 1430 -1570 / -1570
Review of Systems
-
History Source: Patient
Constitutional: Reports No Symptoms
Respiratory: Reports No Symptoms
Cardiac: Reports No Symptoms
Abdomen/GI: Reports No Symptoms
Musculoskeletal: Reports No Symptoms
Neuro: Reports No Symptoms
Physical Exam
-
General: No Apparent Distress, Comfortable and Conversant
HEENT: Normocephalic and Atraumatic
Respiratory: Clear to Auscultation and Non Labored Respirations; Negative Wheezes, Rales, Rhonchi or Crackles
Cardiac: Regular Rhythm and S1/S2
GI: Soft, Nontender and Nondistended
Musculoskeletal: No Clubbing, No Cyanosis and No Edema
Skin: Warm and Dry
Neuro: Awake, Alert and Oriented
Psych: Calm
[2024-08-26] MEDS: COLACE 100 MG PO ×2 (08:42→19:26)
[2024-08-26] MEDS: PRANDIN 1 MG PO ×3 (08:42→17:13)
[2024-08-26] MEDS: TAPAZOLE 5 MG PO (08:42)
[2024-08-26] MEDS: CRESTOR 10 MG PO (08:42)
[2024-08-26] MEDS: FARXIGA 10 MG PO (08:42)
[2024-08-26] MEDS: NORVASC 5 MG PO (08:42)
[2024-08-26] MEDS: COREG 12.5 MG PO ×2 (08:42→19:22)
[2024-08-26] MEDS: LOVENOX 40 MG SC (08:43)
[2024-08-26] MEDS: NOVOLOG FLEXPEN-LOW RESISTANCE 1 UNITS SC ×2 (08:43→12:40)
[2024-08-26] MEDS: SENOKOT-S 1 TABLET PO ×2 (08:43→19:22)
[2024-08-26] MEDS: DESENEX/MITRAZOL/ZEASORB 1 APPLIC TOPICAL ×2 (08:44→19:21)
--- NOTE | 2024-08-26 10:39 | CM ---
Auth still pending. Called both and [phone] and left VM with return call requested.
[facility] unable to accept after 3p Wednesday until earliest, Wednesday.
[2024-08-26 12:36] LABS: Glucose - Point of Care 227 mg/dl (70-99)
[2024-08-26] MEDS: ROXICODONE 10 MG PO (14:11)
[2024-08-26 15:35] VITALS: BP 150/78
[2024-08-26 17:55] LABS: Glucose - Point of Care 309 mg/dl (70-99)
[2024-08-26] MEDS: NOVOLOG FLEXPEN-LOW RESISTANCE 4 UNITS SC (17:58)
[2024-08-26] MEDS: LANTUS 0.12 UNITS SC (21:32)
[2024-08-26 21:34] LABS: Glucose - Point of Care 342 mg/dl (70-99)
[2024-08-26 23:51] VITALS: BP 154/99
[2024-08-27 07:19] VITALS: BP 158/66
[2024-08-27 07:30] LABS: Glucose - Point of Care 175 mg/dl (70-99)
--- NOTE | 2024-08-27 08:28 | W.PN.UPDATE ---
Update Note
Progress Note Update
I saw and evaluated the patient. I reviewed the resident�s note and agree with findings and plan as documented in the resident�s note.
Patient complains of pain in the plantar aspect of his right foot.
Gen: NAD, AAOx3.
Eyes: EOMI, PERRLA, no scleral icterus.
Neck: supple.
CV: Remains RRR, +S1/S2, no m/r/g.
Resp: Remains CTAB, no rales, wheezes, or rhonchi.
Abd: +BS, soft, NT, ND
Skin: No rashes. Tenderness to palpation in the mid to distal plantar aspect of the right foot. There is no ecchymoses or noticeable deformities.
Neuro: CN 2-12 intact, non-focal.
Psych: Normal mood and affect.
R femur Xray: Intertrochanteric fracture, proximal right femur.
Right intertrochanteric fracture:
-due to mechanical fall
-s/p Insertion right short cephalomedullary nail on 08/23/24
-PT/OT
-acute blood loss anemia due to surgery
R foot pain:
-check R foot Xray
-suspect soft tissue trauma
-also check R knee Xray as the pt also mentions R knee discomfort
Other problems:
Essential hypertension: cont Norvasc (increase to 10mg daily)/BB
DM2: cont Lantus/SSI/accuchecks/Prandin/Farxiga
HLD: cont statin
Hyperthyroidism: cont Methimazole
CKD3b: Cr currently acceptable for surgery. Prior Cr of 1.3 noted but this was in May 2022. No HUYEN at this time.
Obesity due to excess calories
FULL/Lovenox
Remains medically cleared for d/c since 08/24/24AM, case management aware.
[2024-08-27] MEDS: NOVOLOG FLEXPEN-LOW RESISTANCE 1 UNITS SC (08:33)
[2024-08-27] MEDS: LOVENOX 40 MG SC (08:34)
[2024-08-27] MEDS: TAPAZOLE 5 MG PO (08:35)
[2024-08-27] MEDS: FARXIGA 10 MG PO (08:36)
[2024-08-27] MEDS: COLACE 100 MG PO ×2 (08:36→19:22)
[2024-08-27] MEDS: CRESTOR 10 MG PO (08:36)
[2024-08-27] MEDS: PRANDIN 1 MG PO ×3 (08:36→17:22)
[2024-08-27] MEDS: SENOKOT-S 1 TABLET PO ×2 (08:37→19:22)
[2024-08-27] MEDS: COREG 12.5 MG PO ×2 (08:37→19:22)
[2024-08-27] MEDS: NORVASC 10 MG PO (08:40)
[2024-08-27] MEDS: DESENEX/MITRAZOL/ZEASORB 1 APPLIC TOPICAL ×2 (08:41→21:10)
[2024-08-27 08:53] LABS: Hematocrit 28.3 % (39.0-52.0); Hemoglobin 9.4 g/dL (13.0-18.0); Mean Corp Hgb Conc. 33.2 g/dL (33.0-37.0); Mean Corpuscular Hgb 30.2 pg (27.0-31.0); Platelet Count 171 10^3/uL (130-400); Red Blood Cell Count 3.11 10^6/uL (4.70-6.10); White Blood Cell Count 9.8 10^3/uL (4.8-10.8)
[2024-08-27] MEDS: NORVASC PO (09:02)
[2024-08-27 09:16] LABS: Blood Urea Nitrogen 27 mg/dl (9-20); Calcium 8.2 mg/dl (8.4-10.2); Carbon Dioxide 25 mmol/L (22-30); Chloride 106 mmol/L (98-107); Estimated Creatinine Clearance 50 ml/min; Glucose 150 mg/dl (70-99); Potassium 3.9 mmol/L (3.5-5.1); Sodium 139 mmol/L (135-145); eGFR 48.85
--- NOTE | 2024-08-27 09:38 | PTCARENOTE ---
pt c/o base (dorsal) of great toe pain since fall. states can nonwt bear, and said asked for XR yesterday. no obvious bruising/swelling to area, +pedals + movement and sensation. TT Drs. Farley/Naye..will be seeing pt shortly and XR order
--- NOTE | 2024-08-27 09:51 | W.PN.HOSP.TC ---
Today's Communication/Plan
-
XRs R Foot, ankle, knee, otherwise medically stable for d/c, likely 08/28
Assessment / Plan
Assessment / Plan
1. Right Femur Intertrochanteric Fracture s/p Mechanical Fall
- R Hip XR: Comminuted intertrochanteric fracture, proximal right femur
- R Femur XR: Intertrochanteric fracture, proximal right femur
- POD#4 for cephalomedullary nail of the right hip/femur
- PT/OT for disposition planning, other varela medically stable for discharge.
- Medically stable for d/c since 08/24. Awaiting bed at [facility]. Earliest bed available (08/28)
- (08/27) c/o pain in R foot, ankle, knee that does not allow him to participate in PT fully; requesting XRs
2. Essential HTN
- Continue amlodipine, carvedilol, losartan
3. NIDDM
- AccuCheck AC & HS
- Sliding Scale Insulin
- continue empagliflozin, Lantus and repaglinide
- hold metformin
4. hypercholesterolemia
- continue rosuvastatin
5. CKD stage III
- Creatinine 1.7 on admission, repeat this AM 1.7 despite IV fluids
[facility] has had 2 outpatient CMPs in the past year with Cr 1.6 (this is likely his new baseline)
- Patient has spoken with PCP regarding need to follow up with cable installer repairer for worsening kidney function
6. Hyperthyroidism
- Continue methimazole
Anticipated Discharge: Within 24 hours
Subjective/Interval History
-
Date of Service: August 27, 2024
Patient seen and examined while resting comfortably in bed, watching TV. Patient states that he is having pain in the right knee, right ankle, and right foot (base of the right big toe) that is keeping him from fully participating in physical
therapy. Patient otherwise denies any acute complaints.
Objective Data
-
Labs:
Laboratory Results
08/27/24
08:47
WBC 9.8
Hgb 9.4 L
Hct 28.3 L
Plt Count 171
Sodium 139
Potassium 3.9
Chloride 106
Carbon Dioxide 25
BUN 27 H
Creatinine 1.5 H
Glucose 150 H
Calcium 8.2 L
Vital Signs:
Vital Signs
Temp Pulse Resp BP Pulse Ox
98.1 F 60 16 154/99 98
08/27/24 07:19 08/27/24 07:19 08/27/24 07:19 08/27/24 08:40 08/27/24 07:19
I&O
08/26/24 08/27/24 08/28/24
06:59 06:59 06:59
Intake Total 1380 / 1380 1200 / 1200
Output Total 2950 / 2950 1900 / 1900
Balance -1570 / -1570 -700 / -700
Review of Systems
-
Constitutional: Reports No Symptoms
Respiratory: Reports No Symptoms
Cardiac: Reports No Symptoms
Abdomen/GI: Reports No Symptoms
Musculoskeletal: Reports Joint Pain
Neuro: Reports No Symptoms
Physical Exam
-
General: No Apparent Distress, Comfortable and Obese
HEENT: Normocephalic and Atraumatic
Respiratory: Clear to Auscultation; Negative Wheezes, Rales or Rhonchi
Cardiac: Regular Rhythm and S1/S2
GI: Soft and Nontender
Musculoskeletal: No Clubbing, No Cyanosis, No Edema and Other (mild tenderness to palpation of the soft tissue of the bottom of the right foot proximal to the base of the right big toe)
Skin: Warm and Dry
Neuro: Awake, Alert and Oriented
Psych: Calm
Data Reviewed
-
Labs: Labs Reviewed by me
[2024-08-27] MEDS: ROXICODONE 10 MG PO (11:07)
[2024-08-27 11:56] LABS: Glucose - Point of Care 282 mg/dl (70-99)
[2024-08-27] MEDS: NOVOLOG FLEXPEN-LOW RESISTANCE 3 UNITS SC (12:28)
[2024-08-27 16:30] VITALS: BP 160/76
[2024-08-27 17:14] LABS: Glucose - Point of Care 300 mg/dl (70-99)
[2024-08-27] MEDS: ROXICODONE 5 MG PO (17:22)
[2024-08-27] MEDS: NOVOLOG FLEXPEN-LOW RESISTANCE 4 UNITS SC (17:23)
[2024-08-27] MEDS: LANTUS 0.12 UNITS SC (21:11)
[2024-08-27 21:16] LABS: Glucose - Point of Care 244 mg/dl (70-99)
[2024-08-27 23:10] VITALS: BP 130/68
[2024-08-28 07:15] VITALS: BP 176/82
[2024-08-28 07:20] LABS: Glucose - Point of Care 185 mg/dl (70-99)
--- NOTE | 2024-08-28 08:06 | W.PN.HOSP.TC ---
Addendum entered and electronically signed by Chuck Aguilera MD 08/29/24 00:34:
Attending Addendum:
I saw and evaluated the patient. I reviewed the resident�s note and agree with findings and plan as documented in the resident�s note. Sub: Complains if right hip pain and right ankle pain. Improved with narcs. Wants to go to SNF today. Full 12
point ROS reviewed and negative except as documented Exam: Vitals reviewed in chart GEN-NAD heart RRR lungs clear abd soft LE Right hip Aquacel in palce CDI
# Right intertrochanteric fracture:
-due to mechanical fall
-s/p Insertion right short cephalomedullary nail on 08/23/24
-PT/OT
-acute blood loss anemia due to surgery
-DVT proph x 28 days per ortho
-DC to SNF
Other problems:
Essential hypertension: improved with increase Norvasc
DM2: cont Lantus/SSI/accuchecks/Prandin/Farxiga
HLD: cont statin
Hyperthyroidism: cont Methimazole
CKD3b: Cr currently acceptable for surgery. Prior Cr of 1.3 noted but this was in May 2022. No HUYEN at this time.
Obesity due to excess calories
FULL/Lovenox
Dispo DC to [facility]
Time spent coordinating care, DC planning, review of DC plan of care with resident, transition of care, review of records, med rec/scripts sent electronically, consults, notes, d/w consultants, nursing, family, and CM� 33 mins
Original Note:
Today's Communication/Plan
-
Discharge to [facility]
Assessment / Plan
Assessment / Plan
Patient is a 74-year-old male who presented to [facility] ED for evaluation right hip pain s/p mechanical fall. Patient reports that he tripped over bricks linings. He denies hitting his head and any LOC.
R femur Xray in ED showed intertrochanteric fracture in the proximal right femur.
Assessment and plan
#Right Femur Intertrochanteric Fracture s/p Mechanical Fall
- R Hip XR: Comminuted intertrochanteric fracture, proximal right femur
- R Femur XR: Intertrochanteric fracture, proximal right femur
- POD#5 s/p cephalomedullary nail of the right hip/femur
- PT/OT for disposition planning
-He has been medically stable for d/c since 08/24 and cleared by Ortho. We were awaiting bed at [facility]. Bed is available today and patient will be picked up prior to 12 PM.
-Hemoglobin is stable
#Pain in R foot, ankle, knee pain
-Pain was interfering with PT
-Imaging of right foot, ankle, knee shows no evidence of any acute dislocation or fracture
-No need for any further evaluation or intervention
#Essential HTN
- Continue amlodipine, carvedilol, losartan
#NIDDM
- Sliding Scale Insulin
- Continue Jardiance, Lantus and repaglinide
- Hold metformin
- Continue Accu-Cheks
#Hypercholesterolemia
- Continue rosuvastatin
#CKD stage III
- No evidence of HUYEN
- Creatinine steady and close to baseline
- Patient will follow-up with his snailer as outpatient
#Hyperthyroidism
- Continue methimazole
#DVT prophylaxis
-Lovenox
Full code
Anticipated Discharge: Today
Subjective/Interval History
-
Date of Service: August 28, 2024
Patient does not offer any complaints except for soreness of base of right foot, which makes it a bit difficult for him to to bear weight on it.
Denies any chest pain, shortness of breath, lightheadedness, dizziness.
Objective Data
-
Vital Signs:
Vital Signs
Temp Pulse Resp BP Pulse Ox
98.1 F 61 16 176/82 97
08/28/24 07:15 08/28/24 07:15 08/28/24 07:15 08/28/24 07:15 08/28/24 07:15
I&O
08/27/24 08/28/24 08/29/24
06:59 06:59 06:59
Intake Total 1200 / 1200 1920 / 1920
Output Total 1900 / 1900 1300 / 1300
Balance -700 / -700 620 / 620
Review of Systems
-
Constitutional: Reports No Symptoms
Respiratory: Reports No Symptoms
Cardiac: Reports No Symptoms
Abdomen/GI: Reports No Symptoms
Musculoskeletal: Reports Joint Pain and Other (Pain at the base of right toe)
Neuro: Reports No Symptoms
Physical Exam
-
General: No Apparent Distress, Comfortable and Obese
HEENT: Normocephalic and Atraumatic
Respiratory: Clear to Auscultation; Negative Wheezes, Rales or Rhonchi
Cardiac: Regular Rhythm and S1/S2
GI: Soft and Nontender
Musculoskeletal: No Clubbing, No Cyanosis, No Edema and Other (mild tenderness to palpation of the soft tissue of the plantar aspect of right foot proximal to the base of the first digit; no bloody or purulent discharge at the site of surgery, no
palpable hematoma, no tenderness)
Skin: Warm and Dry
Neuro: Awake, Alert and Oriented
Psych: Calm
[2024-08-28] MEDS: TAPAZOLE 5 MG PO (08:40)
[2024-08-28] MEDS: COREG 12.5 MG PO (08:40)
[2024-08-28] MEDS: FARXIGA 10 MG PO (08:40)
[2024-08-28] MEDS: SENOKOT-S 1 TABLET PO (08:40)
[2024-08-28] MEDS: NORVASC 10 MG PO (08:40)
[2024-08-28] MEDS: CRESTOR 10 MG PO (08:40)
[2024-08-28] MEDS: NOVOLOG FLEXPEN-LOW RESISTANCE 1 UNITS SC (08:41)
[2024-08-28] MEDS: COLACE 100 MG PO (08:41)
[2024-08-28] MEDS: PRANDIN 1 MG PO (08:41)
[2024-08-28] MEDS: DESENEX/MITRAZOL/ZEASORB 1 APPLIC TOPICAL (08:42)
[2024-08-28] MEDS: LOVENOX 40 MG SC (08:43)
[2024-08-28] MEDS: ROXICODONE 5 MG PO (08:51)
--- NOTE | 2024-08-28 09:10 | CM ---
Addendum entered by Nata Lambert 08/28/24 10:40:
Pt given IMM
Transport arranged for 1200
Pts notified of transfer and transport time
Spoke with Janis at [facility] - aware of transport time
Original Note:
Auth obtained
Approved for skilled level 2
[id number]
14 days - 08/26-09/08
Clinical updates due 09/07

TT sent to Dr Aguilera and Dr Marks made aware
Spoke with Janis at [facility] - given auth info - requesting early transport for admission to [facility]
Plan - Transfer to [facility]
R - [phone]
- [phone]
[2024-08-28 09:31] VITALS: BP 157/72; PULSE 58
[2024-08-28 09:34] VITALS: BP 157/68; BP 157/72; PULSE 73; O2SAT 95
[2024-08-28 11:10] VITALS: BP 121/60
--- NOTE | 2024-08-28 17:06 | W.DCSUMMARY ---
Addendum entered and electronically signed by Chuck Aguilera MD 08/29/24 00:38:
Read, reviewed. See same day progress note for additional details. DC meds to be added- Lovenox x 28 days and increased norvasc. Called facility to verify.
Nelson Aguilera MD
Original Note:
Documented by User: Santana Yancey DO, Resident 08/28/24 17:35
Discharge Summary
Discharge Data
Date of Admission: 08/22/24
Date of Discharge: 08/28/24
-
Pending Results: No
Hospital Course
Clifton Sykes is a 74-year-old male with a past medical history of hypertension, type-2 diabetes mellitus, hypercholesterolemia, chronic kidney disease stage III, and hyperthyroidism who presented to the [place] emergency department for
evaluation of right hip pain after a mechanical fall. Patient reported that [place] tripped [place] [address] to [facility]. The patient did not report any antecedent or subsequent symptoms and did not lose consciousness.
ED COURSE
In the emergency department, the patient complained of right hip pain, and exhibited an externally rotated right hip with increased pain with internal rotation. He was otherwise neurovascularly intact. Hip and femur x-rays of the right leg revealed
a comminuted intertrochanteric fracture of the proximal right femur. Patient was admitted for orthopedic surgery.
HOSPITAL COURSE
Orthopedic surgery was consulted and the patient underwent a cephalomedullary nail procedure of the right hip/femur. Surgery was successful and repeat imaging showed improved alignment. The patient was medically stable for discharge, but remained in
the hospital while a bed was procured. In this time, the patient underwent daily physical therapy, which caused the patient some pain in the right leg. X-ray imaging of the right ankle, right foot, and right knee did not reveal any pathology. The
patient was discharged to alf facility on 08/28/24 for further physical therapy and rehabilitation.
DISCHARGE RECOMMENDATIONS
Continue physical therapy and rehabilitation at alf facility.
Patient given a prescription for as needed oxycodone for pain.
Follow up with primary care provider in less than one week for further recommendations.
The patient's creatinine ranged from 1.5-1.7 during admission, which is elevated from past admissions. The primary care provider should obtain a follow up basic metabolic panel and assess renal function.
The patient required higher doses of Norvasc while admitted. Although this is likely secondary to pain, it should be followed up by the primary care provider.
The patient had acute blood loss anemia following his procedure. Follow up with a complete blood count in one week.
Follow up with orthopedic surgeon as advised.
Discharge Plan
-
Patient Disposition: Skilled Nursing/SNF
Discharge Diagnosis/Procedures: Right Femur Intertrochanteric Fracture
Cephalomedullary Nail
Condition: Fair
Diet: Diabetic, Carb Controlled
Activity: Other activity
Additional Activity: As directed by your orthopedic surgeon.
Bathing Restrictions: As directed by Orthopedic Surgeon
Referrals:
Rosalva Coronado PA-C [Family Provider] - in less than 1 week
Prescriptions:
New
oxycodone 5 mg Tablet
5 mg PO Q4HPRN PRN (Reason: severe pain) Qty: 18 0RF
Continued
rosuvastatin [Crestor] 10 MG tablet
10 mg PO DAILY
metformin 500 mg Tablet
500 mg PO BIDWMEAL
insulin glargine [Lantus Solostar U-100 Insulin] 100 unit/mL (3 mL) Insulin Pen
25 unit SC HS
carvedilol 12.5 mg tablet
12.5 mg PO BID
aspirin 81 mg Tablet,Delayed Release (Dr/Ec)
81 mg PO DAILY
amlodipine 5 mg Tablet
5 mg PO DAILY Qty: 30 0RF
methimazole 5 mg Tablet
5 mg PO DAILY Qty: 30 0RF
losartan 50 mg tablet
50 mg PO DAILY
repaglinide 1 mg tablet
1 mg PO AC
Jardiance 10 mg tablet
10 mg PO DAILY
Discharge Orders:
Discharge Patient (As Directed); Ordered 08/26/24
Ordered By: Santana Yancey
Discharge Date and Time
Discharge Date/Time: 08/28/24 12:09
Print Language: MONGOLIAN

Documented by User: Chuck Aguilera MD 08/29/24 00:29
Discharge Summary
Discharge Data
Date of Admission: 08/22/24
Date of Discharge: 08/29/24
Discharge Plan
-
Patient Disposition: Skilled Nursing/SNF
Discharge Diagnosis/Procedures: Right Femur Intertrochanteric Fracture
Cephalomedullary Nail
Condition: Fair
Diet: Diabetic, Carb Controlled
Activity: Other activity
Additional Activity: As directed by your orthopedic surgeon.
Bathing Restrictions: As directed by Orthopedic Surgeon
Referrals:
Rosalva Coronado PA-C [Family Provider] - in less than 1 week
Prescriptions:
New
oxycodone 5 mg Tablet
5 mg PO Q4HPRN PRN (Reason: severe pain) Qty: 18 0RF
Continued
rosuvastatin [Crestor] 10 MG tablet
10 mg PO DAILY
metformin 500 mg Tablet
500 mg PO BIDWMEAL
insulin glargine [Lantus Solostar U-100 Insulin] 100 unit/mL (3 mL) Insulin Pen
25 unit SC HS
carvedilol 12.5 mg tablet
12.5 mg PO BID
aspirin 81 mg Tablet,Delayed Release (Dr/Ec)
81 mg PO DAILY
amlodipine 5 mg Tablet
5 mg PO DAILY Qty: 30 0RF
methimazole 5 mg Tablet
5 mg PO DAILY Qty: 30 0RF
losartan 50 mg tablet
50 mg PO DAILY
repaglinide 1 mg tablet
1 mg PO AC
Jardiance 10 mg tablet
10 mg PO DAILY
Discharge Orders:
Discharge Patient (As Directed); Ordered 08/26/24
Ordered By: Santana Yancey
Discharge Date and Time
Discharge Date/Time: 08/28/24 12:09
Print Language: MONGOLIAN
== END 2024-08-28 12:09 | DRG 481 ==
LOC: 2 SOUTH 15:26
PROVIDERS: Internal Medicine; Nurse Practitioner Family; Nurse Practitioner Gerontology; Physician Assistant; ADMITTING PHYSICIAN Internal Medicine; ATTENDING PHYSICIAN Family Medicine; CONSULT PHYSICIAN Orthopaedic Surgery; EMERGENCY PHYSICIAN Emergency Medicine; FAMILY PHYSICIAN Physician Assistant Medical
PROC: 0QS636Z Reposition Right Upper Femur with Intramedullary Internal Fixation Device, Percutaneous Approach (ICD-10-PCS; 2024-08-23)
DX: S72.141A Displaced intertrochanteric fracture of right femur, initial encounter for closed fracture (principal); D62 Acute posthemorrhagic anemia; N17.9 Acute kidney failure, unspecified; S50.311A Abrasion of right elbow, initial encounter; I12.9 Hypertensive chronic kidney disease with stage 1 through stage 4 chronic kidney disease, or unspecified chronic kidney disease; E11.22 Type 2 diabetes mellitus with diabetic chronic kidney disease; N18.32 Chronic kidney disease, stage 3b; E78.00 Pure hypercholesterolemia, unspecified; E66.09 Other obesity due to excess calories; E05.90 Thyrotoxicosis, unspecified without thyrotoxic crisis or storm; W01.0XXA Fall on same level from slipping, tripping and stumbling without subsequent striking against object, initial encounter; Z79.84 Long term (current) use of oral hypoglycemic drugs; Z79.82 Long term (current) use of aspirin; Z79.4 Long term (current) use of insulin; Z87.891 Personal history of nicotine dependence; Z88.8 Allergy status to other drugs, medicaments and biological substances; Z68.35 Body mass index [BMI] 35.0-35.9, adult; Y92.096 Garden or yard of other non-institutional residence as the place of occurrence of the external cause
CPT/HCPCS: 73502; 73552; 73560; 73600; 73620; 76000; 80048; 80053; 81003; 81015; 82962; 83036; 85025; 85027; 86803; 86850; 86900; 86901; 96374; 97110; 97162; 97166; 97530; 97535; 99285; C1713